=== PATIENT | male | born 1980 | race Caucasian/White ===

== ENCOUNTER 2017-08-04 15:43 | Emergency (ER) | payer SELFPAY ==
[~2017-08-04] VITALS: Ht 182.9 cm; Wt 99.8 kg
[2017-08-04 16:13] LABS: RED BLOOD COUNT 4.77 10^6/uL (4.35-5.85); RED CELL DISTRIBUTION WIDTH 14.3 % (10.0-14.5); WHITE BLOOD COUNT 10.8 10^3/uL (4.3-11.0)
[2017-08-04] MEDS ORDERED: CATHETER FLUSH 10 ML SYR IV PRN (16:15)
[2017-08-04] MEDS ORDERED: NS 100 ML (IVPB) BAG IV ONE (16:15)
[2017-08-04] MEDS ORDERED: IOHEXOL 350 MG/ML 100 ML (OMNIPAQUE 350) VIAL IV ONE (16:15)
[2017-08-04 16:28] LABS: ALANINE AMINOTRANSFERASE 77 U/L (0-55); ALBUMIN 4.3 GM/DL (3.2-4.5); ALCOHOL < 10 MG/DL (<10); ANION GAP 9 MMOL/L (5-14); ASPARTATE AMINO TRANSFERASE 38 U/L (5-34); BILIRUBIN,TOTAL 0.2 MG/DL (0.1-1.0); BLOOD UREA NITROGEN 14 MG/DL (7-18); BUN/CREATININE RATIO 14; CALCIUM 9.7 MG/DL (8.5-10.1); CARBON DIOXIDE 24 MMOL/L (21-32); CHLORIDE 106 MMOL/L (98-107); GFR ESTIMATED > 60; GLUCOSE 98 MG/DL (70-105); POTASSIUM 4.4 MMOL/L (3.6-5.0); SODIUM 139 MMOL/L (135-145); TOTAL PROTEIN 7.8 GM/DL (6.4-8.2)
[2017-08-04 16:35] LABS: BILIRUBIN,URINE NEGATIVE (NEGATIVE); KETONES,URINE NEGATIVE (NEGATIVE); LEUKOCYTE ESTERASE ,URINE NEGATIVE (NEGATIVE); NITRITE,URINE NEGATIVE (NEGATIVE); PH,URINE 6 (5-9); PROTEIN,URINE NEGATIVE (NEGATIVE); UROBILINOGEN,URINE NORMAL (NORMAL)
--- NOTE | 2017-08-04 16:47 | Diagnostic Imaging Report ---
PROCEDURE: CT chest, abdomen and pelvis with contrast. TECHNIQUE: Multiple contiguous axial images were obtained through the chest, abdomen, and pelvis after the administration of intravenous contrast. DATE: 08/04/2017. COMPARISON: None. INDICATION: 36-year-old male, pinned between gate and pipe fencing by cow. Left axillary and rib pain extending posteriorly. FINDINGS: There is no identified focal airspace consolidation. There is no pneumothorax. There is no pleural effusion. There is no pulmonary nodule. There is no focal airspace consolidation. Central airways are patent. The heart is not enlarged. There is no pericardial effusion. There is no evidence of acute aortic injury. There is no mediastinal hematoma. There is no identified central pulmonary embolus. Main pulmonary artery diameter is within normal limits. The liver is normal in size and contour. There is no evidence of liver laceration. There is no perihepatic fluid. The main, right and left portal veins are patent. The gallbladder is not well-seen and may be contracted or surgically absent. There is no intrahepatic or extrahepatic bile duct dilation. The main pancreatic duct is not abnormally dilated. The pancreatic parenchyma is unremarkable. The spleen is not enlarged. There is no evidence of acute splenic injury. The adrenal glands are unremarkable. Unremarkable appearance of the renal parenchyma. Urinary collecting systems are not distended. There is no identified renal or ureteral stone. The urinary bladder is unremarkable. The cecum is positioned in the midline upper abdomen. The appendix is identified on axial image 76 and adjacent sequential images. There is no evidence of acute appendicitis. The intestinal tract is not distended. There is a rotational anomaly of bowel. The duodenal jejunal junction is to the right of midline. There is no free intraperitoneal air. There is no drainable fluid collection. There is no free pelvic fluid. There is a rounded hyperdense mass in the left anterior abdominal wall subcutaneous tissues on axial image 64, measuring 3.9 x 1.7 cm in size. This potentially could reflect a hematoma although could also relate to other mass. Correlation clinically and followup as needed is recommended. There is a sclerotic lesion measuring 6 mm in size in the left ischium on axial image 129 with narrow zone of transition most likely relating to a benign bone island. There is no identified acute bony abnormality. IMPRESSION: CT chest, abdomen and pelvis: 1. Round hyperdense mass in the left anterior abdominal wall subcutaneous tissues, measuring 3.9 x 1.7 cm in size. This is potentially account development representative of a hematoma in the appropriate clinical setting. Correlation clinically is recommended. This also could relate to other soft tissue mass. 2. No otherwise identified potential acute posttraumatic abnormality at the level of the chest, abdomen or pelvis. 3. Rotational anomaly of bowel. Dictated by: Dictated on workstation # [id number]
--- NOTE | 2017-08-04 17:26 | ED Trauma-Multisystem ---
General Chief Complaint: Trauma-Non Activation Stated Complaint: RIB PAIN Nursing Triage Note: AMB TO ROOM WITH SEVERAL NATALIE WRAPS AROUND RIB AREA. REPORTS THAT THIS AM APX 10A WAS KNOCKED INTO A PIPE FENCE BY A 800LB HEFER. C/O PAIN IN L ANTERIOR AND POSTERIOR RIB AREA. NO BRUSING NOTED. HYDROCODONE NOT HELPING. Source of Information: Patient Exam Limitations: No Limitations History of Present Illness Time Seen by Provider: 15:50 Initial Comments This 36-year-old gentleman presents to the emergency room after having a crushing injury to the chest. 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 He complains of pain in the mid back and along the chest wall especially on the left. It does hurt to breathe. He took some hydrocodone at home which did not relieve his pain. He believes he had a brief loss of consciousness while he was compressed between the gait and fence. The incident happened sometime between 10:00 and noon. Allergies and Home Medications Allergies Coded Allergies: No Known Drug Allergies (Unverified , 08/04/17) Home Medications No Active Prescriptions or Reported Meds Constitutional: no symptoms reported Eyes: No Symptoms Reported Ears: No Symptoms Reported Nose: No Symptoms Reported Mouth: No Symptoms Reported Throat: No Symptoms to Report Respiratory: see HPI Cardiovascular: No Symptoms Reported Gastrointestinal: no symptoms reported Genitourinary: no symptoms reported Musculoskeletal: see HPI Skin: no symptoms reported Psychiatric/Neurological: See HPI Past [id number] Hx Patient Social History Alcohol Use: Denies Use Recreational Drug Use: No Smoking Status: Current Everyday Smoker Recent Foreign Travel: No Contact w/Someone Who Travel: No Recent Infectious Disease Expo: No Surgeries History of Surgeries: Yes (SURG AT , numerous surgeries for cleft lip and palate) Surgeries: Abdominal (Gastroschesis repair) Respiratory History of Respiratory Disorde: No Cardiovascular History of Cardiac Disorders: No Neurological History of Neurological Disord: Yes Neurological Disorders: Seizure Disorder, Traumatic Brain Injury Reproductive System Hx Reproductive Disorders: No Genitourinary History of Genitourinary Disor: No Gastrointestinal History of Gastrointestinal Di: Yes Gastrointestinal Disorders: Obstructive Bowel Musculoskeletal History of Musculoskeletal Dis: No Endocrine History of Endocrine Disorders: No HEENT History of HEENT Disorders: Yes (cleft lip, cleft palate) Cancer History of Cancer: No Psychosocial History of Psychiatric Problem: No Integumentary History of Skin or Integumenta: No Physical Exam Vital Signs Vital Sign - Last 12Hours 08/04/17 15:50 Temp 98.0 Pulse 79 Resp 18 B/P (MAP) 151/84 (106) Pulse Ox 98 O2 Delivery Room Air Temperature (Fahrenheit): 98.0 General Appearance: No Apparent Distress, WD/WN Head: No Evidence of Injury, Other (cleft lip) Ears, Nose, Throat: No Evidence of ENT Injury Neck: Normal Inspection Cardiovascular: Regular Rate, Rhythm, No Edema, No Murmur Respiratory: Lungs Clear, Normal Breath Sounds, No Accessory Muscle Use, No Respiratory Distress, Other (chest wall tenderness to palpation over the left anterior costal margin and over the left posterior chest wall) Gastrointestinal: Non Tender, Soft, Other (there is a scar over the left upper abdomen and a palpable lump superior to that. 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) Back: Normal Inspection, Vertebral Tenderness (lower thoracic spine) Extremity: Normal Inspection, No Pedal Edema Neurologic/Psychiatric: Alert, Oriented x3, No Motor/Sensory Deficits, Normal Mood/Affect, movement therapist II-XII Norm as Tested Skin: Normal Color, Warm/Dry Progress/Results/Core Measures Results/Orders Lab Results Laboratory Tests Test 08/04/17 16:01 08/04/17 16:27 Range/Units White Blood Count 10.8 4.3-11.0 10^3/uL Red Blood Count 4.77 4.35-5.85 10^6/uL Hemoglobin 14.7 13.3-17.7 G/DL Hematocrit 44 40-54 % Mean Corpuscular Volume 92 80-99 FL Mean Corpuscular Hemoglobin 31 25-34 PG Mean Corpuscular Hemoglobin Concent 34 32-36 G/DL Red Cell Distribution Width 14.3 10.0-14.5 % Platelet Count 302 130-400 10^3/uL Mean Platelet Volume 10.0 7.4-10.4 FL Sodium Level 139 135-145 MMOL/L Potassium Level 4.4 3.6-5.0 MMOL/L Chloride Level 106 98-107 MMOL/L Carbon Dioxide Level 24 21-32 MMOL/L Anion Gap 9 5-14 MMOL/L Blood Urea Nitrogen 14 7-18 MG/DL Creatinine 1.00 0.60-1.30 MG/DL Estimat Glomerular Filtration Rate > 60 BUN/Creatinine Ratio 14 Glucose Level 98 70-105 MG/DL Calcium Level 9.7 8.5-10.1 MG/DL Total Bilirubin 0.2 0.1-1.0 MG/DL Aspartate Amino Transf (AST/SGOT) 38 H 5-34 U/L Alanine Aminotransferase (ALT/SGPT) 77 H 0-55 U/L Alkaline Phosphatase 124 40-136 U/L Total Protein 7.8 6.4-8.2 GM/DL Albumin 4.3 3.2-4.5 GM/DL Serum Alcohol < 10 <10 MG/DL Urine Color YELLOW Urine Clarity CLEAR Urine pH 6 5-9 Urine Specific Center 1.015 L 1.016-1.022 Urine Protein NEGATIVE NEGATIVE Urine Glucose (UA) NEGATIVE NEGATIVE Urine Ketones NEGATIVE NEGATIVE Urine Nitrite NEGATIVE NEGATIVE Urine Bilirubin NEGATIVE NEGATIVE Urine Urobilinogen NORMAL NORMAL MG/DL Urine Leukocyte Esterase NEGATIVE NEGATIVE Urine RBC (Auto) NEGATIVE NEGATIVE Urine RBC NONE /HPF Urine WBC NONE /HPF Urine Squamous Epithelial Cells NONE /HPF Urine Crystals NONE /LPF Urine Bacteria NEGATIVE /HPF Urine Casts NONE /LPF Urine Mucus NEGATIVE /LPF Urine Culture Indicated NO My Orders Orders - AAMIR SHEEHAN MD Alcohol (08/04/17 15:57) Cbc No Diff (08/04/17 15:57) Comprehensive Metabolic Panel (08/04/17 15:57) Ua Culture If Indicated (08/04/17 15:57) Ct Chest/Abdomen/Pelvis W (08/04/17 15:57) Iohexol Injection (Omnipaque 350 Mg/Ml 1 (08/04/17 16:15) Sodium Chloride Flush (Catheter Flush Sy (08/04/17 16:15) Ns (Ivpb) (Sodium Chloride 0.9% Ivpb Bag (08/04/17 16:15) Pharmacy Communication (Pharmacy Communi (08/04/17 16:04) Ketorolac Injection (Toradol Injection) (08/04/17 17:30) Medications Given in ED Vital Signs/I&O Vital Sign - Last 12Hours 08/04/17 08/04/17 15:50 17:31 Temp 98.0 Pulse 79 66 Resp 18 18 B/P (MAP) 151/84 (106) Pulse Ox 98 95 O2 Delivery Room Air Room Air Blood Pressure Mean: 106 Progress Note : Progress Note Given the crushing in nature of this injury, CT of the chest, abdomen and pelvis was felt most appropriate. Patient was agreeable. CT revealed no acute injuries. There was a mass or fluid collection noted in the left upper abdominal subcutaneous tissue. 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 It is unchanged and not particularly tender. Toradol was given for pain management. Departure Impression Impression: Primary Impression: Crushing injury of chest Qualified Codes: S28.0XXA - Crushed chest, initial encounter Disposition: HOME, SELF-CARE Condition: Improved Departure-Patient Inst. Decision time for Depature: 17:15 Referrals: NO,LOCAL PHYSICIAN (PCP/Family) Primary Care Physician Patient Instructions: NO INSTRUCTIONS GIVEN Add. Discharge Instructions: You may take ibuprofen up to 800 mg every 8 hours as needed for pain. Add Tylenol (acetaminophen) up to 1000 mg every 6 hours for additional pain relief. Icing the affected areas in 20 minute intervals may also be helpful. Return to care if you develop worsening symptoms, especially if you develop shortness of breath, fever, intensifying pain, or other worsening symptoms. All discharge instructions reviewed with patient and/or family. Voiced understanding. Scripts No Active Prescriptions or Reported Meds AAMIR SHEEHAN MD Aug 04, 2017 17:26
[2017-08-04] MEDS ORDERED: KETOROLAC 30 MG/ML VIAL IVP ONE (17:30)
[2017-08-04 17:31] VITALS: BP 139/93
== END 2017-08-04 17:33 | disposition home or self-care (01) ==
LOC: ER 15:47
DX: S28.0XXA Crushed chest, initial encounter (principal); G40.909 Epilepsy, unspecified, not intractable, without status epilepticus; F17.200 Nicotine dependence, unspecified, uncomplicated; Z87.828 Personal history of other (healed) physical injury and trauma; W55.89XA Other contact with other mammals, initial encounter
CPT/HCPCS: 36415; 71260; 74177; 80053; 80320; 81000; 85027